=== PATIENT | male | born 1985 | race Caucasian/White ===

== ENCOUNTER 2018-04-28 06:59 | Day surgery (SDC) | payer OTHER ==
[2018-04-26 10:27] LABS: HEMATOCRIT 44.9 % (37.9-51.0); HEMOGLOBIN 15.4 g/dL (13.5-17.0); MEAN CORPUSCULAR HEMOGLOBIN 29.1 pg (27.0-33.4); MEAN CORPUSCULAR HGB CONC 34.4 g/dL (32.0-36.0); MEAN CORPUSCULAR VOLUME 85 fl (80-97); PLATELET COUNT 179 10^3/uL (150-450); RED CELL DISTRIBUTION WIDTH 13.8 % (11.5-14.0); WHITE BLOOD COUNT 6.4 10^3/uL (4.0-10.5)
[2018-04-28] MEDS ORDERED: CEFAZOLIN 1 GM/D5W RTU 1 GM/50 ML RTUPB IV ONE (07:12)
[2018-04-28] MEDS ORDERED: BUPIVACAINE INJ/PF LIPOSOME/PF 266 MG/20 ML SDV ONE (07:18)
[2018-04-28] MEDS ORDERED: BUPIVACAINE HCL 0.25 % INJ/PF (2.5 MG/1 ML) 30 ML VIAL ONE (07:18)
[2018-04-28] MEDS ORDERED: DEXAMETHASONE SOD PHOSPHATE INJ 4 MG/1 ML VIAL ONE (08:36)
[2018-04-28] MEDS ORDERED: ONDANSETRON HCL INJ/PF 4 MG/2 ML SDV ONE (08:36)
[2018-04-28] MEDS ORDERED: MIDAZOLAM 2 MG/2 ML INJ ONE (08:36)
[2018-04-28] MEDS ORDERED: HYDROMORPHONE HCL INJ/PF 2 MG/ML AMPULE ONE (08:37)
[2018-04-28] MEDS ORDERED: PROPOFOL INJ 200 MG/20 ML VIAL IV ONE (08:37)
[2018-04-28] MEDS ORDERED: DIPHENHYDRAMINE HCL 50 MG/ML VIAL IV PRN (09:22)
[2018-04-28] MEDS ORDERED: MEPERIDINE HCL/PF INJ 25 MG/1 ML DISP.SYRIN IV PRN (09:22)
[2018-04-28] MEDS ORDERED: FENTANYL CITRATE INJ/PF 100 MCG/2 ML AMPUL IV PRN ×3 (09:22)
[2018-04-28] MEDS ORDERED: ONDANSETRON HCL INJ/PF 4 MG/2 ML SDV IV PRN (09:22)
--- NOTE | 2018-04-28 10:34 | Discharge Summary ---
Discharge Summary (SDC) - Discharge Final Diagnosis: right inguinal hernia Date of Surgery: 04/28/18 Discharge Date: 04/28/18 Condition: Stable Forms: ASU Anesthesia D/C Instruction, Discharge POC-Surgical Service Treatment or Instructions: [facility] [address], [place] [address] Discharge Instructions: Open Abdominal Procedures (Hernia, Bowel Surgery) 1.General Information: a. DO NOT DRIVE a car or operative machinery for 1 week. b. DO NOT consume alcohol, tranquilizers, sleeping medication, or any non- prescribed medication for 24 hours unless approved by your doctor or as long as taking pain medication. c. DO NOT make important decisions or sign any important papers for the first 24 hours after surgery. d. When discharged home the same day as surgery have a responsible person with you the first night. 2.Activity Restriction: _8 weeks; a. Avoid heavy lifting (> 10-15 lbs), straining abdominal muscles and sports, mowing lawn, vacuum engine cleaner and bending over a lot. b. Walking is important to avoid blood clots in the legs and deep breathing can prevent pneumonia. c. If it fine to go for walks, up and down steps, and ride in a car. 3.Treatment: a. Leave skin glue intact. You may shower the day after surgery and shower then daily is fine, but you should not bathe in a tub or go swimming for 2 weeks. c. Do not use oils, powders, or lotion on your incision. 4.Medications: a. You may take prescription tablets for pain if needed, one every 6 hours (__ _Toradol__). b. You may resume all normal medications unless a change is specified by your doctors. 5.Diet: a. If going home the same day as surgery start with clear liquids, and if you do well then advance to normal foods low inf fat and protein. Smaller portion size may be oneal the first night. 6.Notify Physician If: a. Pain is not relieved by pain medication b. Persistent nausea and vomiting c. Chills, fever (above 101) d. Persistent bleeding or swelling at the operative site e. Unable to urinate for 6-8 hours f. Increased redness, drainage, or foul smelling discharge from incision 7. Follow Up Care: a. Please call our office to schedule an appointment with your doctor for 2 weeks. In the event of any postoperative problems or questions you may call our office during business hours or the On-Call surgeon through the felting machine operator helper [facility]. [facility] [phone] [facility] [phone] (Ask for the surgeon supervisor contingents) b. I understand the instructions for my postoperative care as described above and a copy has been given to me. _ Witness Patient/Significant Other Date Prescriptions: Ketorolac Tromethamine [Toradol 10 mg Tablet] 10 mg PO Q6HP PRN #20 tablet PRN Reason: Referrals: MARIA EUGENIA HODGSON MD [ACTIVE STAFF] - Discharge Diet: As Tolerated Discharge Activity: No Lifting Over 10 Pounds, No Lifting/Push/Pulling, Walk Frequently Report the Following to Your Physician Immediately: Nausea, Vomiting, Increase in Pain, Fever over 101 Degrees, Unusual Bleeding, Redness, Increased Soreness, Drainage-Foul Smelling
[2018-04-28] MEDS ORDERED: OXYCODONE-ACETAMINOPHEN 5-325 MG TABLET PO PRN (10:35)
--- NOTE | 2018-04-28 10:36 | Operative Report ---
Operative Report DATE OF SURGERY: 04/28/18 PREOPERATIVE DIAGNOSIS: Large, chronically incarcerated right inguinal hernia POSTOPERATIVE DIAGNOSIS: Same, indirect OPERATION: 1. Right inguinal exploration. 2. Right inguinal herniorrhaphy with large [facility] Prolene hernia system SURGEON: MARIA EUGENIA HODGSON 1ST CLOTH FRAMER: PEPE PENNY ANESTHESIA: GA TISSUE REMOVED OR ALTERED: Right inguinal hernia sac COMPLICATIONS: None ESTIMATED BLOOD LOSS: 20 cc INTRAOPERATIVE FINDINGS: See below PROCEDURE: Patient was seen in the preop holding area the right inguinal hernia was marked. He was then taken the main operating room where general anesthesia was induced. Arms abducted right inguinal area, external genitalia prepped and draped sterile fashion. Surgical plan surgical timeout were conducted. The findings are significant for a large incarcerated right inguinal hernia with viscera stuck down into the right hemiscrotum. I could not manually reduce the incarcerated tissue despite complete general anesthesia. The skin was anesthetized with quarter percent Marcaine, and a standard right inguinal herniorrhaphy incision was made with a knife. Subcutaneous tissue and Gabo's fascia divided as encountered along with the superficial vein which was ligated. Deeper tissue was anesthetized with quarter percent Marcaine, including the external oblique aponeurosis which was then opened sharply with knife and scissors. This enabled the incarcerated tissue to be easily reduced. We now placed a laminar retractor, and explored the contents of the inguinal canal. However we first elevated the superior and inferior external oblique fascial flaps. The right ilioinguinal nerve was identified, and preserved throughout the dissection. Inspection of the inguinal contents revealed a large hernia sac. This was teased away very methodically and minimal reading from the cord structures. There was no significant cord lipoma. There was significant scarring between the sac and the cord structures as well as cremasteric fibers and are tissue. Once the hernia sac was freed up, it was opened and found to contain no bowel at this time. We amputated a part of the sac, enabling us to carefully palpate the floor of the inguinal canal medially from the inside. The canal floor was actually intact but only minimally patulous. The findings were consistent with a right indirect inguinal hernia. Now oversewed the hernia sac at its base with a 2-0 Vicryl suture and amputated the remaining portion of the redundant peritoneal lining. This was done with electrocautery. Once the pursestring was secured, the stump was allowed to retract into the retroperitoneal space. We now spent some time cleaning up the floor the inguinal canal, mostly tripping away any fibrotic tissue and muscular fragments so as to make complete exposure to the floor the inguinal canal. Again the ilioinguinal nerve was maintained in view and preserved. I felt that a large Prolene hernia system prosthetic would be appropriate. I opened up the meat tissue overlying the retroperitoneal fat just medial to the hernia amputation stump. I bluntly opened the retroperitoneal space using finger dissection. This base opened up nicely without significant scarring. We now deployed the on large [facility] Prolene hernia system mesh the inner component splayed out in the retroperitoneal cavity. The external component was then trimmed to the appropriate configuration, with an upside down U cut in the inferior portion of the mesh to accommodate the cord structures. Using excellently 9-0 PDS sutures, the external component was secured to conjoined tendon, Poupart's ligament and the lacunar ligament. Once this was achieved, we felt the floor the inguinal canal was beautifully reconstructed without undue tension on the cord structures. We closed the external oblique aponeurosis along the direction of its fibers with a running 2-0 Vicryl suture again ensuring the base overlying the internal inguinal ring was not too tight. Gabo's fascia and skin closed with 203 0 Vicryl, skin approximated with Dermabond glue and 20 cc of full-strength Exparel deployed into the subcutaneous tissue. Patient tolerated procedure well, extubated , taken recovery room stable condition. The physician professional nursing assistant, Ms. Olivas, provided assistance during this case by: Assisting with retracting tissue, instillation of local anesthesia and closure of skin incisions.
[2018-04-28 13:44] VITALS: BP 135/84
== END 2018-04-28 13:30 | disposition home or self-care (01) ==
LOC: OROUT 06:59
PROVIDERS: ATTEND Surgery
DX: K40.30 Unilateral inguinal hernia, with obstruction, without gangrene, not specified as recurrent (principal)
CPT/HCPCS: 36415; 85027; 88302 ×2; 49507; C1781; J2250; J0690; J1100; J1170; J2405; J2704; C9290; 830